=== PATIENT | female | born 1980 | race Caucasian/White ===

== ENCOUNTER 2021-05-03 12:32 | Emergency (ER) | payer OTHER ==
[~2021-05-03 12:32] MED LIST: PROVERA 10 MG T10 MG PO
== END 2021-05-03 14:55 | disposition home or self-care (01) ==
LOC: ER1 12:32
DX: U07.1 COVID-19 (principal); R11.0 Nausea; T50.B95A Adverse effect of other viral vaccines, initial encounter
CPT/HCPCS: 96374; 96375; 99282; J1200; J2930

== ENCOUNTER 2021-11-17 06:03 | Emergency (ER) | payer OTHER ==
[2021-11-17 07:06] LABS: HEMOGLOBIN 13.7 gm/dl (12.3-15.3); RED BLOOD COUNT 4.64 M/UL (4.00-5.10); WHITE BLOOD COUNT 9.4 K/UL (4.5-11.0)
[2021-11-17 07:27] LABS: BUN/CREATININE RATIO 17 (0-10)
[2021-11-17] MEDS ORDERED: PROTONIX40 MG PO (11:27)
[2021-11-17] MEDS ORDERED: ZOFRAN 4 MG TAB4 MG PO (11:27)
== END 2021-11-17 11:45 | disposition home or self-care (01) ==
LOC: ER1 06:03
PROVIDERS: Physician Assistant
DX: K29.70 Gastritis, unspecified, without bleeding (principal); E03.9 Hypothyroidism, unspecified; Z79.899 Other long term (current) drug therapy
CPT/HCPCS: 71045; 80053; 81001; 82550; 82553; 83690; 84484; 84703; 85025; 85379; 93005; 96374; 96375; 99285; C9113; J2270; J2405; Q9967